=== PATIENT | male | born 1965 | race Caucasian/White ===

== ENCOUNTER 2021-11-27 17:14 | Emergency (ER) | payer MEDICAID ==
[~2021-11-27] VITALS: Ht 185.4 cm; Wt 79.4 kg
--- NOTE | 2021-11-27 17:52 | NUR ---
DAK STREAKS NOTED IN FIELD OF VISION SINCE 2 DAYS AGO
[2021-11-27 17:55] VITALS: BP 131/85
--- NOTE | 2021-11-27 20:06 | NUR ---
Patient discharged to home in stable condition. Written and verbal after care instructions given. Patient verbalizes understanding of instruction.
== END 2021-11-27 20:07 | disposition home or self-care (01) ==
LOC: ER 17:16
DX: H43.391 Other vitreous opacities, right eye (principal); Z60.2 Problems related to living alone